=== PATIENT | female | born 1965 | race Caucasian/White ===

== ENCOUNTER 2022-08-16 13:24 | Outpatient (CLI) | payer MEDICAID, SELFPAY ==
--- NOTE | 2022-08-16 13:15 | RT.EKG_ITS ---
APPROVED REPORT Exam: Resting ECG Reason for Exam: chest discomfort Patient Location: O HR:100 bpm ECG Measurements Heart Rate 100 AXIS AR 157 P 59 QRSd 84 QRS 25 QT 348 T 57 QTc 449 Conclusion Sinus tachycardia...rate> 99
== END 2022-08-16 13:25 | disposition home or self-care (01) ==
LOC: DI.CM 13:25
PROVIDERS: Visit Provider Nurse Practitioner Family
DX: R07.89 Other chest pain (principal); R94.31 Abnormal electrocardiogram [ECG] [EKG]; R00.0 Tachycardia, unspecified
CPT/HCPCS: 93010

== ENCOUNTER 2022-08-16 14:06 | Emergency (ER) | payer MEDICAID, SELFPAY ==
[2022-08-16 14:10] VITALS: BP 183/106; PULSE 106; RESP 20; TEMP 37.1; O2SAT 95
--- NOTE | 2022-08-16 14:15 | DI.CT_ITS ---
Exam(s) CT HEAD WO EXAM: CT HEAD WO CLINICAL HISTORY: headache. TECHNIQUE: Imaging Protocol: Axial computed tomography images with coronal and sagittal reformatted images were created and reviewed COMPARISON: No exams were available for comparison FINDINGS: The ventricular system is normal in appearance. No evidence of acute intracranial hemorrhage, mass effect, or midline shift. The orbital structures are unremarkable. The temporal bone structures appear intact. Calvarium: Normal. Visualized Paranasal sinuses/Mastoids: Clear. IMPRESSION: Normal cranial CT. RADIATION DOSE DELIVERED: 690.35mGy.cm Total DLP 690.35mGy.cm Total DLP !Error CTDIvol DATA REPOSITORY: All CT scans at this facility are submitted to the National Radiology Data Registry (NRDR) Dose Index Registry (DIR) with the [employer] ([employer]). RADIATION OPTIMIZATION: All CT scans at this facility use at least one of these dose optimization te chniques: automated exposure control; mA and/or kV adjustment per patient size (includes targeted exa ms where dose is matched to clinical indication); or iterative reconstruction.
--- NOTE | 2022-08-16 14:15 | RT.EKG_ITS ---
APPROVED REPORT Exam: Resting ECG Reason for Exam: left arm numbness Patient Location: E HR:98 bpm ECG Measurements Heart Rate 98 AXIS VA 152 P 38 QRSd 81 QRS -1 QT 343 T 41 QTc 440 Conclusion Sinus rhythm...normal P axis, V-rate 60- 99 Probable left atrial enlargement...P >50mS, <-0.10mV V1
--- NOTE | 2022-08-16 14:22 | ED.GENADUL_ITS ---
Discharge Plan Disposition Patient Disposition: HOME Condition: Stable Discharge Details Clinical Impression: Headache, Arm numbness left, Hypertension, COVID Primary Care Provider: Unknown,Unknown ED Provider: Alex Spring Home Meds and New Rx's Prescriptions: Continued lisinopril 20 mg tablet 20 mg PO DAILY 30 Days Qty: 30 0RF amlodipine 10 mg tablet 10 mg PO DAILY Qty: 30 0RF Discharge Instructions Instructions: COVID-19 (Coronavirus Disease 2019) (ED) Additional Instructions: your ct scan, mri and blood work did not show concerning findings you tested positive for covid you have been placed on a follow up list to get established with a primary care provider if you feel more ill, have severe worsening pain or persistent vomiting return to the emergency department Medical Decision Making 57 yo female with hx of htn who moved here from [place] over the summer and hasn't taken her lisinopril or amlodipine in over a month as she ran out, comes in with 2 days of head pain, numbness and tingling in her left arm and general weakness. She states the pain started slowly worsening and is now severe. She has had some intermittent episodes of blurred vision as well. No chest pain or pressure, no dyspnea. She arrives stable speaking clearly, cn ii-xii intact,caox4 clear speech, no focal deficits, nih of 0 on my exam. She has no abdomen tenderness, clear lung sounds, normal peripheral pulses. She does state she has a history of migraines but hasn't had one in over a year. Given her pain and subjective numbness for [address] head to evaluate for possible hemorrhage and obtain ekg, cbc, cmp and troponin. She has no deficits and symptoms started 2 days ago so not a lytic or interventional candidate but suspicion for cva is low. 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 Troponin negative and given two days of symptoms do not feel delta troponin indicated bp now 150/90, pain significantly improved, mri unremarkable. She is positive for covid and has had some nasal congestion and dry cough on repeat questioning. She states she is vaccinated for covid, isn't requiring oxygen at this time and doesn't require hospitalization for covid. I suspect migraine in setting of covid. 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 She is stable for d/c, will provide 30 days of her lisinopril and amlodipine and placed on f/u list to see pcp, return precautions given Differential Diagnosis Differential Diagnosis: migraine, tension headache, hemorrhage Imaging Data Radiologic Study: Attestation: I personally reviewed and interpreted this imaging study as follows: Imaging: CT Scan Radiologist's impression: no acute findings Radiologic Study #2: Attestation: I personally reviewed and interpreted this imaging study as follows: Imaging: MRI Radiologist's impression: no acute findings ECG Data Attestation: I personally reviewed and interpreted this ECG (s) as follows: Prior ECG tracings: not available for review Interpretation: sinus rhythm rate of [address] t wave ischemic findings HPI General Mode of arrival: ambulatory . Date/Time Provider Initiated Documentation: 08/16/22 14:08 . Limitations to Documentation: no limitations . Information obtained by: patient . History of Present Illness 57 year old F presents to the emergency department with the chief complaint of headache, described as moderate, Quality is described as aching, Patient started experiencing this day(s) (2) and it has been constant. No relieving factors improve symptom(s), No exacerbating factors reported . Patient notes weakness. Patient did receive the following treatments prior to arrival, none Related Data Home Medications Medication Instructions Recorded Confirmed amlodipine 10 mg tablet 10 mg PO DAILY #30 tabs 08/16/22 lisinopril 20 mg tablet 20 mg PO DAILY 30 days #30 tabs 08/16/22 Previous Rx's Medication Instructions Recorded amlodipine 10 mg tablet 10 mg PO DAILY #30 tabs 08/16/22 lisinopril 20 mg tablet 20 mg PO DAILY 30 days #30 tabs 08/16/22 Allergies Allergy/AdvReac Type Severity Reaction Status Date / Time No Known Allergies Allergy Verified 08/16/22 13:18 General Stated Complaint: CVA/TIA ZAMZAM: 2 Review of Systems All systems reviewed & are unremarkable except as noted in HPI and below Constitutional Constitutional: Denies chills and Denies fever(s) Cardiovascular Cardiovascular: Denies chest pain and Denies dyspnea Respiratory Respiratory: Denies cough and Denies dyspnea Gastrointestinal Gastrointestinal: Denies abdominal pain Genitourinary Genitourinary: Denies dysuria Integumentary/Breasts Skin/Breast: Denies rash PFSH All Active Problems (Updated 08/16/22 @ 16:25 by Alex Spring MD) Headache (Acute) Arm numbness left (Acute) Hypertension (Chronic) COVID (Acute) Social History Smoking risk assessment performed?: No Exam Const Orientation: alert HENMT Head: normal to inspection Ears: external ears normal General nose exam: external nose normal Mouth: moist mucous membranes Eyes General: appearance normal, both eyes and all related structures Neck Neck: normal visual inspection Resp Effort & Inspection: normal respiratory effort and able to speak in complete sentences Cardio Rate: regular rate Skin General skin exam: no rashes or lesions noted Neuro General: patient alert and patient oriented x3 Extrem General: normal to inspection Psych Mental Status: mental status grossly normal Course Vital Signs Vital signs: Vital Signs Temperature 37.1 C 08/16/22 14:10 Pulse 106 H 08/16/22 14:10 Respiratory Rate 20 08/16/22 14:10 Blood Pressure 183/106 H 08/16/22 14:10 Pulse Oximetry 95 08/16/22 14:10 Temperature 37.1 C 08/16/22 14:10 Temperature Source Temporal Artery Scan 08/16/22 14:10 Pulse 106 H 08/16/22 14:10 Respiratory Rate 20 08/16/22 14:10 Blood Pressure 183/106 H 08/16/22 14:10 Blood Pressure Position Sitting 08/16/22 14:10 Pulse Oximetry 95 08/16/22 14:10 Oxygen Delivery Method Room Air 08/16/22 14:10 Oxygen Flow Rate 0 08/16/22 14:10
[2022-08-16 14:57] LABS: Abs Immature Grans 0.02 10^3/uL (0.0-0.06); Absolute Basophil Count 0.04 10^3/uL (0.0-0.2); Absolute Eosinophil Count 0.08 10^3/uL (0.0-0.7); Absolute Lymphocyte Count 0.68 10^3/uL (1.2-3.4); Absolute Monocyte Count 0.53 10^3/uL (0.1-0.8); Absolute Neutrophil Count 5.01 10^3/uL (1.2-6.7); Basophils % 0.6; Eosinophils % 1.3; HCT 45.2 % (36.0-46.0); HGB 15.3 g/dL (11.2-15.7); Immature Grans % 0.3; Lymphocytes % 10.7; MCH 30.7 pg (27.0-33.0); MCHC 33.8 % (32.0-36.0); MCV 91 fL (80-95); MPV 11.3 fL (8.0-11.0); Monocytes % 8.3; Neutrophils % 78.8; Platelet Count 197 10^3/uL (130-400); RBC 4.99 10^6/uL (3.93-5.22); WBC 6.36 10^3/uL (4.4-10.8)
[2022-08-16 15:00] LABS: Source Nasal/Nares
[2022-08-16] MEDS: diphenhydrAMINE 50 MG/ML VIAL 25 MG IVP (15:02)
[2022-08-16] MEDS: Prochlorperazine 10 MG/2 ML VIAL IVP (15:03)
[2022-08-16] MEDS: Normal Saline Flush 10 ML SYR IVP (15:04)
[2022-08-16 15:13] LABS: ALT 29 U/L (14-59); AST 18 U/L (15-37); Albumin 3.9 g/dL (3.4-5.0); Alkaline Phosphatase 96 U/L (46-116); Anion Gap 11.6 mmol/L (3-11); BUN 12 mg/dL (7-18); Bilirubin, Total 0.5 mg/dL (0.2-1.0); CO2 24.4 mmol/L (21.0-32.0); CREATININE 0.9 mg/dL (0.55-1.02); Calcium 8.8 mg/dL (8.5-10.1); Chloride 102 mmol/L (98-107); Estimated GFR 75.03 (mL/min/1.73m2); Glucose 112 mg/dL (74-106); Magnesium 1.8 mg/dL (1.8-2.4); Potassium 3.7 mmol/L (3.5-5.1); Sodium 138 mmol/L (136-145); Total Protein 7.7 g/dL (6.4-8.2); Troponin I < 50 ng/L (<or=60)
--- NOTE | 2022-08-16 15:15 | DI.MRI_ITS ---
Exam(s) MR BRAIN WO EXAM: MR BRAIN WO CLINICAL HISTORY: ?cva TECHNIQUE: Multiplanar multisequence MRI of the brain was performed. COMPARISON: No exams were available for comparison FINDINGS: The patient has a large metal year ring on the left which cannot be removed and this causes significa nt artifact influence sing primarily visibility of the left temporal lobe.The ventricular system is n ormal in appearance. There are scattered areas of periventricular and subcortical white matter signal abnormality consiste nt with microvascular ischemic changes and sparing the corpus callosum. No other significant signal abnormality identified in the brain.. The orbital and temporal bone structures appear intact as does the pituitary. Diffusion weighted imaging shows no evidence of infarction. Susceptibility weighted imaging shows no evidence of intracranial hemorrhage. There is normal flow void in the [place] vasculature. IMPRESSION: Normal brain MRI for age. The scan is somewhat limited by artifact from a left metallic earring whic h could not be removed. DATA REPOSITORY:
[2022-08-16] MEDS: HYDROmorphone 2 MG/ML SYR 1 MG IVP (15:26)
[2022-08-16 15:28] LABS: COVID-19 PCR POSITIVE (Negative)
[2022-08-16] MEDS: amLODIPine 10 MG TAB PO (16:03)
--- NOTE | 2022-08-16 16:23 | NUR.NOTE ---
Nursing Note: Referral given to Care Management for needs PCP, hypertension, establish care; within 30 days.
[2022-08-16 16:36] VITALS: RESP 20
== END 2022-08-16 16:46 | disposition home or self-care (01) ==
PROVIDERS: Emergency Provider Emergency Medicine
DX: U07.1 COVID-19 (principal); I10 Essential (primary) hypertension; R51.9 Headache, unspecified; R20.0 Anesthesia of skin
CPT/HCPCS: 36415; 80053; 87635; 93005; 96374; 96375; 99284; 70450; 70551; 83735; 84484; 85025; 93010; J0780; J1170; J1200

== ENCOUNTER 2022-09-03 07:44 | Emergency (ER) | payer MEDICAID, SELFPAY ==
[2022-09-03] VITALS (13 sets, daily range): BP systolic 126–161; BP diastolic 68–98; PULSE 72–91; RESP 11–16; TEMP 36.6; O2SAT 95–98
--- NOTE | 2022-09-03 07:45 | DI.RAD_ITS ---
Exam(s) XR CHEST 2V PA LATERAL EXAM: XR CHEST 2V PA LATERAL CLINICAL HISTORY: CP TECHNIQUE: 2D digital imaging was performed. COMPARISON: No exams were available for comparison FINDINGS: HEART: Normal size. Aorta: PULMONARY VASCULATURE: Normal. LUNGS: Clear. PLEURAL SPACE: No pleural effusion or pneumothorax. BONE:Unremarkable for age. IMPRESSION: No acute abnormality. DATA REPOSITORY: RADIATION DOSE DELIVERED:
--- NOTE | 2022-09-03 07:45 | RT.EKG_ITS ---
APPROVED REPORT Exam: Resting ECG Reason for Exam: CHEST PAIN Patient Location: E HR:88 bpm ECG Measurements Heart Rate 88 AXIS AL 173 P 45 QRSd 79 QRS 15 QT 392 T 30 QTc 475 Conclusion Sinus rhythm...normal P axis, V-rate 60- 99. Sinus. Normal axis. No STEMI. I have reviewed and interpreted ECG and agree with software generated interpretation.
--- NOTE | 2022-09-03 08:15 | ED.GENADUL_ITS ---
Discharge Plan Disposition Patient Disposition: HOME Condition: Good Discharge Details Clinical Impression: Chest pain Primary Care Provider: Latasha,Local ED Provider: Nimo Leone Home Meds and New Rx's Prescriptions: New amlodipine 10 mg tablet 10 mg PO DAILY 30 Days Qty: 30 0RF lisinopril 20 mg tablet 20 mg PO DAILY 30 Days Qty: 30 0RF Continued lisinopril 20 mg tablet 20 mg PO DAILY 30 Days Qty: 30 0RF amlodipine 10 mg tablet 10 mg PO DAILY Qty: 30 0RF Discharge Instructions Instructions: Chest Pain (ED), Stress (ED) Additional Instructions: Your labs and imaging are reassuring here today. No evidence of acute heart attack or blood clot in your lungs. As discussed, I am concerned that some of this may be associated with stress. Please try to take note of the how you are feeling and what is occurring when you have these symptoms. Care management will contact you regarding follow up with primary care. I have refilled your blood pressure medications. If you develop increased pain, fevers/chills, difficulty breathing or other new/worsening symptoms please seek care urgently once again. Discharge Data Discharge Date/Time-TO BE ENTERED AT DEPARTURE: 09/03/22 12:32 Medical Decision Making Patient is a pleasant 57-year-old female presenting today with chief complaint of chest tightness. Patient was here on 08/16/2022 at that time, she was endorsing some left arm tingling and was diagnosed with COVID-19. She states that since being evaluated here which did include head imaging including a CT and MRI of the patient was endorsing headache at that time, her intermittent left arm tingling has persisted. This sounds to be intermittent and is now in line with when she experiences her chest tightness. States that the chest tight ness started most of the left side of her chest it will then spread out across the chest. She reports that this is worse at night when she is sitting and resting. Patient reports that she works at [employer] where she is on her feet all day and does walk 30 minutes to and from work. While her walking has been slightly slower since her diagnosis COVID, she did not experience shortness of breath or chest tightness during that time. She is no longer experiencing cough, congestion. Denies fevers or chills, no sputum production. No radiation of the pain. She denies any personal or familial history of NE. She does have history of hypertension and states that she has been taking her antihypertensives. On exam, patient appears nontoxic. She is hypertensive but does have baseline history of hypertension her current readings in the 160s or 150s that sounds to be her baseline at home. She first appears profoundly anxious and is tearing. She states that she is very anxious around her symptoms. Does not have a diagnosis of anxiety or depression. Her lungs are clear, normal cardiac auscultation. She has 2+ distal pulses in all extremities. Abdomen is benign. Do not note any objective neurologic deficits. As the patient currently endorsing some chest discomfort, will give her aspirin. However, I do have Low suspicion for ACS as there is no correlation with exertion and patient does walk for about an hour every day. She appears more anxious than anything else at this time. As she was recently diagnosed with COVID, are closed elevated chest discomfort, also considered potentially a pulmonary embolism. Will obtain chest x-ray and baseline blood work. I did discuss the fact that she appears anxious and she does agree with my assessment is interested in anxiolytic. We will give Ativan, patient did not drive herself here. HEART: Normal size.? Aorta: PULMONARY VASCULATURE: Normal. LUNGS: Clear. ? PLEURAL SPACE: No pleural effusion or pneumothorax. BONE:Unremarkable for age.? IMPRESSION: No acute abnormality CBC pending. CMP without signifcant abnormality. Troponin WNL. As the patient was having pain when she came in, plan for repeat troponin. D-dimer is within age-adjusted normal. Patient's pain has completely subsided after the IV Ativan. Repeat troponin WNL. Discussed with patient. She remains asymptomatic. She and I discussed the possib ility that some of this could be anxiety driven and stress. She began to tear and is acknowledge that this is likely with recent move. Spoke with patients daughter, with patient permission, who also has noted her to be more anxious and upset. while her history and triggers of these events do sound to be this, I want to ensure she has close f/u as she has underlying health conditions and active smoker. Contact our care mangement team who will try ot speed up eval by PCP. Will refill her HTN medications in the interum. We discussed supportive care. Encoruaged she try to track her symptoms more, try to find stressful triggers, if any. Discussed return precautions. All of her questions and concerns were addressed, sh eis in agreement with this plan. HPI General Date/Time Provider Initiated Documentation: 09/03/22 07:55 . Limitations to Documentation: no limitations . Information obtained by: patient, RN notes reviewed and old records reviewed . History of Present Illness 57 year old F presents to the emergency department with the chief complaint of chest tightness, left arm tingling, anxious, described as moderate, with intensity rated at 7. Quality is described as other (tightness), and is localized to the chest. Patient reports no radiation. Patient started experiencing this day(s) and it has been intermittent. other things that improve symptom(s), (none during the day, when at work or walking to work) Other factors that worsen symptoms (at night when sitting, currently while sitting) . Patient notes chest pain and shortness of breath (when she has the chest tightness); denies cough, diaphoresis, fever/chills, headaches, malaise, nausea/vomiting, rash and weakness. Patient did receive the following treatments prior to arrival, none Related Data Home Medications Medication Instructions Recorded Confirmed amlodipine 10 mg tablet 10 mg PO DAILY #30 tabs 08/16/22 09/03/22 lisinopril 20 mg tablet 20 mg PO DAILY 30 days #30 tabs 08/16/22 09/03/22 amlodipine 10 mg tablet 10 mg PO DAILY 1 month #30 tabs 09/03/22 lisinopril 20 mg tablet 20 mg PO DAILY 1 month #30 tabs 09/03/22 Previous Rx's Medication Instructions Recorded amlodipine 10 mg tablet 10 mg PO DAILY #30 tabs 08/16/22 lisinopril 20 mg tablet 20 mg PO DAILY 30 days #30 tabs 08/16/22 amlodipine 10 mg tablet 10 mg PO DAILY 1 month #30 tabs 09/03/22 lisinopril 20 mg tablet 20 mg PO DAILY 1 month #30 tabs 09/03/22 Allergies Allergy/AdvReac Type Severity Reaction Status Date / Time Penicillins Allergy Anaphylaxis Unverified 09/03/22 07:58 General Stated Complaint: Chest Pain ZAMZAM: 3 Review of Systems Constitutional Constitutional: Reports as per HPI, Denies chills, Denies fever(s) and Denies headache(s) ENT Ears, Nose, Mouth, and Throat: Denies headache(s) Cardiovascular Cardiovascular: Reports as per HPI and Denies dyspnea on exertion Respiratory Respiratory: Reports as per HPI, Denies chest congestion, Denies cough, Denies pain on inspiration, Denies pain with cough and Denies dyspnea on exertion Gastrointestinal Gastrointestinal: Reports as per HPI, Denies abdominal pain, Denies diarrhea, De nies nausea and Denies vomiting Musculoskeletal Musculoskeletal: Reports as per HPI and Denies back pain Integumentary/Breasts Skin/Breast: Reports as per HPI and Denies rash Neurologic Neurologic: Reports as per HPI and Denies headache(s) PFSH All Active Problems (Updated 09/03/22 @ 12:12 by DINA Sharma) Headache (Acute) Arm numbness left (Acute) Hypertension (Chronic) COVID (Acute) Chest pain (Acute) Social History Smoking/Tobacco Use Status: Current every day Tobacco Type: cigarettes Smoking risk assessment performed?: Yes Alcohol Intake: never Drug use: Never Substance use type: does not use Do you feel safe at home: Yes Do you feel safe in your relationship?: Yes Exam Const General: cooperative, healthy appearing, comfortable, no acute distress, well developed and anxious (tearing, appears very anxious) Nutritional Appearance: well nourished and overweight Orientation: alert, awake and oriented x3 HENMT Head: normal to inspection Ears: hearing grossly normal bilaterally Mouth: moist mucous membranes Chest Chest: normal inspection of the chest, normal palpation of entire chest wall and no crepitus Resp Effort & Inspection: normal respiratory effort, able to speak in complete sentences and no respiratory distress Auscultation: clear to auscultation bilaterally, no rales, no rhonchi and no wheezes Cardio Rate: regular rate Rhythm: regular rhythm Heart Sounds: S1 normal and S2 normal GI Inspection: normal to inspection, no edema and non-distended Palpation: soft, no hepatosplenomegaly, not firm, no guarding, not rigid and nontender Auscultation: normal bowel sounds Back/Spine/Pelvis Back: no CVA tenderness Thoracic/Lumbar Spine: thoracic and lumbar spine normal to inspection Skin General skin exam: no rashes or lesions noted Trauma: no lacerations or abrasions Neuro General: patient alert, patient awake and patient oriented x3 Cognition: normal cognition Speech: speech normal Gait: normal gait Extrem General: normal to inspection, capillary refill normal, no pedal edema, no calf tenderness and normal gait Psych Appearance: grossly normal and well kempt Mental Status: mental status grossly normal Speech and Movement: speech and movement normal Course Vital Signs Vital signs: Vital Signs Temperature 36.6 C 09/03/22 07:54 Pulse 91 H 09/03/22 07:54 Respiratory Rate 16 09/03/22 07:54 Blood Pressure 161/98 H 09/03/22 07:54 Pulse Oximetry 97 09/03/22 07:54 Temperature 36.6 C 09/03/22 07:54 Temperature Source Temporal Artery Scan 09/03/22 07:54 Pulse 91 H 09/03/22 07:54 Respiratory Rate 16 09/03/22 07:54 Respiratory Effort Non-Labored 09/03/22 07:59 Blood Pressure 161/98 H 09/03/22 07:54 Blood Pressure Position Sitting 09/03/22 07:54 Pulse Oximetry 97 09/03/22 07:54 Oxygen Delivery Method Room Air 09/03/22 07:54 Oxygen Flow Rate 0 09/03/22 07:54
[2022-09-03 08:16] LABS: Abs Immature Grans 0.02 10^3/uL (0.0-0.06); Absolute Basophil Count 0.04 10^3/uL (0.0-0.2); Absolute Eosinophil Count 0.23 10^3/uL (0.0-0.7); Absolute Lymphocyte Count 2.98 10^3/uL (1.2-3.4); Absolute Monocyte Count 0.37 10^3/uL (0.1-0.8); Absolute Neutrophil Count 4.59 10^3/uL (1.2-6.7); Basophils % 0.5; Eosinophils % 2.8; HCT 43.6 % (36.0-46.0); HGB 14.5 g/dL (11.2-15.7); Immature Grans % 0.2; Lymphocytes % 36.2; MCH 30.6 pg (27.0-33.0); MCHC 33.3 % (32.0-36.0); MCV 92 fL (80-95); MPV 11.1 fL (8.0-11.0); Monocytes % 4.5; Neutrophils % 55.8; Platelet Count 224 10^3/uL (130-400); RBC 4.74 10^6/uL (3.93-5.22); RDW-SD 41.1 fL; WBC 8.23 10^3/uL (4.4-10.8)
[2022-09-03] MEDS: Aspirin 81 MG CHEW 324 MG CH (08:26)
[2022-09-03] MEDS: LORazepam 2 MG/ML VIAL 0.5 MG IVP (08:29)
[2022-09-03 08:35] LABS: ALT 26 U/L (14-59); AST 15 U/L (15-37); Albumin 3.8 g/dL (3.4-5.0); Alkaline Phosphatase 111 U/L (46-116); Anion Gap 8.7 mmol/L (3-11); BUN 19 mg/dL (7-18); Bilirubin, Total 0.2 mg/dL (0.2-1.0); CO2 26.3 mmol/L (21.0-32.0); Calcium 8.6 mg/dL (8.5-10.1); Chloride 107 mmol/L (98-107); Estimated GFR 66.12 (mL/min/1.73m2); Glucose 144 mg/dL (74-106); Magnesium 2.1 mg/dL (1.8-2.4); Potassium 3.8 mmol/L (3.5-5.1); Sodium 142 mmol/L (136-145); Total Protein 7.6 g/dL (6.4-8.2); Troponin I < 50 ng/L (<or=60)
[2022-09-03 09:24] LABS: D-Dimer 510 ng/mlFEU (<500)
[2022-09-03 11:42] LABS: Troponin I < 50 ng/L (<or=60)
== END 2022-09-03 12:32 | disposition home or self-care (01) ==
PROVIDERS: Emergency Provider Physician Assistant
DX: R07.9 Chest pain, unspecified (principal); R07.89 Other chest pain; I10 Essential (primary) hypertension; F17.210 Nicotine dependence, cigarettes, uncomplicated
CPT/HCPCS: 80053; 93005; 96374; 99284; 71046; 83735; 84484; 85025; 85379; 93010; 99283; J2060

== ENCOUNTER 2022-11-13 07:51 | Emergency (ER) | payer MEDICAID, SELFPAY ==
[2022-11-13 08:01] VITALS: BP 160/97; PULSE 91; RESP 18; TEMP 36.6; O2SAT 99
--- NOTE | 2022-11-13 08:37 | ED.GENADUL_ITS ---
Discharge Plan Disposition Patient Disposition: Home Condition: Stable Discharge Details Clinical Impression: Acute low back pain with sciatica Primary Care Provider: None,None ED Provider: Kavin Titus Home Meds and New Rx's Prescriptions: New diclofenac potassium 50 mg tablet 50 mg PO TID PRN (Reason: pain) Qty: 15 0RF cyclobenzaprine 10 mg tablet 10 mg PO TID PRN (Reason: muscle spasm) Qty: 20 0RF Continued lisinopril 20 mg tablet 20 mg PO DAILY 30 Days Qty: 30 0RF amlodipine 10 mg tablet 10 mg PO DAILY Qty: 30 0RF Discharge Instructions Instructions: Sciatica (ED) Additional Instructions: Please avoid bending lifting and twisting motions as this may make your back pain worse. As you are feeling better you may slowly increase activity as tolerated otherwise follow-up with primary care provider for establishment of PC P and reassessment of your back pain Stand Alone Forms: Work Release Referrals: Primary Care Provider [Outside] - 1 week Discharge Data Discharge Date/Time-TO BE ENTERED AT DEPARTURE: 11/13/22 09:05 Medical Decision Making Patient presenting to the emergency department with chief complaint of back pain. Patient states that this started 1 week ago and has noted some radiation of pain into the left thigh and knee. Patient denies any injury or trauma, incident of lifting or twisting. She states she has only been resting and has not taken any medications for her discomfort. Physical exam is positive for lower lumbar tenderness specifically on the left side and patient has more tenderness to the paraspinal tissue then to the lumbar vertebrae. Exam is otherwise unremarkable, DTRs intact, pulses intact, movement intact, sensation intact. LOW risk for ABDOMINAL AORTIC ANEURYSM, CAUDA EQUINA SYNDROME, EPIDURAL MASS LESION, SPINAL STENOSIS, OR HERNIATED DISK CAUSING SEVERE STENOSIS, thus I consider the discharge disposition reasonable. We have discussed the diagnosis and risks, and we agree with discharging home to follow-up with their primary doctor. We also discussed returning to the Emergency Department immediately if new or worsening symptoms occur. We have discussed the symptoms which are most concerning (e.g., saddle anesthesia, urinary or bowel incontinence or retention, changing or worsening pain) that necessitate immediate return. Will give patient prescription for NSAIDs, will give patient Depo-Medrol IM injection and lidocaine patch here in the emergency department. We will also prescribe some muscle relaxants for patient to use at home. After discussion of diagnosis and plan of care patient has no further needs, questions, or concerns and states clear understanding to return to the emergency department for any worsening symptoms. This documentation was generated using [employer] system, please disregard any oddities of phrase or misspellings. HPI General Mode of arrival: ambulatory . Date/Time Provider Initiated Documentation: 11/13/22 08:05 . Limitations to Documentation: no limitations . Information obtained by: patient and RN notes reviewed . History of Present Illness 57 year old F presents to the emergency department with the chief complaint of back pain , described as moderate, with intensity rated at 8. Quality is described as aching and sharp, and is localized to the back and left. Patient extremity. Patient started experiencing this week(s) (1) and it has been constant. Immobilization improves symptom(s), Movement worsens symptoms . Patient notes no other symptoms.. Patient did receive the foll owing treatments prior to arrival, none Related Data Home Medications Medication Instructions Recorded Confirmed amlodipine 10 mg tablet 10 mg PO DAILY #30 tabs 08/16/22 11/13/22 lisinopril 20 mg tablet 20 mg PO DAILY 30 days #30 tabs 08/16/22 11/13/22 cyclobenzaprine 10 mg tablet 10 mg PO TID PRN muscle spasm #20 11/13/22 tabs diclofenac potassium 50 mg tablet 50 mg PO TID PRN pain #15 tabs 11/13/22 Previous Rx's Medication Instructions Recorded amlodipine 10 mg tablet 10 mg PO DAILY #30 tabs 08/16/22 lisinopril 20 mg tablet 20 mg PO DAILY 30 days #30 tabs 08/16/22 cyclobenzaprine 10 mg tablet 10 mg PO TID PRN muscle spasm #20 11/13/22 tabs diclofenac potassium 50 mg tablet 50 mg PO TID PRN pain #15 tabs 11/13/22 Allergies Allergy/AdvReac Type Severity Reaction Status Date / Time Penicillins Allergy Anaphylaxis Unverified 09/03/22 07:58 General Stated Complaint: Nk/Back Pain ZAMZAM: 3 Review of Systems Constitutional Constitutional: Denies chills and Denies fever(s) Cardiovascular Cardiovascular: Denies chest pain and Denies dyspnea on exertion Respiratory Respiratory: Denies cough and Denies dyspnea on exertion Gastrointestinal Gastrointestinal: Denies abdominal pain, Denies change in bowel habits, Denies diarrhea, Denies nausea and Denies vomiting Genitourinary Genitourinary: Denies urinary incontinence Musculoskeletal Musculoskeletal: Reports as per HPI, Reports back pain and Reports numbness Neurologic Neurologic: Reports numbness PFSH All Active Problems (Updated 11/13/22 @ 08:45 by Kavin Titus NP) Acute low back pain with sciatica (Acute) Hypertension (Chronic) COVID (Acute) Social History Smoking/Tobacco Use Status: Current every day Tobacco Type: cigarettes Smoking risk assessment performed?: Yes Alcohol Intake: never Drug use: Never Substance use type: does not use Do you feel safe at home: Yes Do you feel safe in your relationship?: Yes Exam Const General: cooperative and no acute distress Orientation: alert, awake and oriented x3 Neck Neck: normal visual inspection, full ROM and no meningeal signs Resp Effort & Inspection: normal respiratory effort Auscultation: clear to auscultation bilaterally Cardio Rate: regular rate Rhythm: regular rhythm Heart Sounds: S1 normal and S2 normal Back/Spine/Pelvis Thoracic/Lumbar Spine: thoracic and lumbar spine normal to inspection, pain with thoraco-lumbar ROM, paraspinal tenderness and lumbar spinal tenderness Pelvis: no pain with anterior-posterior compression and no pain with lateral compression Neuro General: patient alert, patient awake and patient oriented x3 Gait: antalgic Motor: muscle tone normal throughout and strength 5/5 throughout Sensory Exam: no sensory deficits noted DTR's: Rt Patellar: 2+ and Lt Patellar: 2+ Course Vital Signs Vital signs: Vital Signs Temperature 36.6 C 11/13/22 08:01 Pulse 91 H 11/13/22 08:01 Respiratory Rate 18 11/13/22 08:01 Blood Pressure 160/97 H 11/13/22 08:01 Pulse Oximetry 99 11/13/22 08:01 Temperature 36.6 C 11/13/22 08:01 Temperature Source Temporal Artery Scan 11/13/22 08:01 Pulse 91 H 11/13/22 08:01 Respiratory Rate 18 11/13/22 08:01 Respiratory Effort Non-Labored 11/13/22 08:05 Blood Pressure 160/97 H 11/13/22 08:01 Blood Pressure Position Sitting 11/13/22 08:01 Pulse Oximetry 99 11/13/22 08:01 Oxygen Delivery Method Room Air 11/13/22 08:01 Oxygen Flow Rate 0 11/13/22 08:01
--- NOTE | 2022-11-13 08:42 | NUR.NOTE ---
Nursing Note: Referral given to Care Management for needs PCP, sciatica, establish care in 1 to 2 weeks
[2022-11-13] MEDS: Lidocaine 5% Patch 1 PATCH TP (08:43)
[2022-11-13] MEDS: methylPREDNISolone ACETATE 40 MG/ML VIAL IM (08:47)
[2022-11-13 08:52] VITALS: BP 160/97; PULSE 80; RESP 18; TEMP 36.6; O2SAT 99
== END 2022-11-13 09:05 | disposition home or self-care (01) ==
PROVIDERS: Emergency Provider Nurse Practitioner Family
DX: M54.42 Lumbago with sciatica, left side (principal)
CPT/HCPCS: 96372; 99284; J1030

== ENCOUNTER 2023-02-08 16:57 | Emergency (ER) | payer MEDICAID, SELFPAY ==
[2023-02-08 16:59] VITALS: BP 169/100; PULSE 90; RESP 20; TEMP 36.7; O2SAT 98
--- NOTE | 2023-02-08 17:00 | RT.EKG_ITS ---
APPROVED REPORT Exam: Resting ECG Reason for Exam: chest tightness Patient Location: E HR:87 bpm ECG Measurements Heart Rate 87 AXIS FL 160 P 46 QRSd 80 QRS 20 QT 372 T 40 QTc 448 Conclusion Sinus rhythm...normal P axis, V-rate 60- 99 Probable left atrial enlargement...P >50mS, <-0.10mV V1 Anteroseptal infarct, old...Q >40mS, V1-V2 There are no significant changes compared to prior EKG performed on 09/03/2022 at 08:02.
--- NOTE | 2023-02-08 17:20 | W.ED.GENAD ---
Discharge Plan Disposition Patient Disposition: Home Condition: Good Discharge Details Clinical Impression: Chest pain, Stress, Anxiety, MCL sprain of left knee Primary Care Provider: Violeta Goodwin ED Provider: Nimo Leone Home Meds and New Rx's Prescriptions: Continued diclofenac potassium 50 mg tablet 50 mg PO TID PRN (Reason: pain) Qty: 15 0RF Patient Comments: does not use anymore 02/08/[address]23 CT lisinopril 20 mg tablet 20 mg PO DAILY 30 Days Qty: 30 0RF amlodipine 10 mg tablet 10 mg PO DAILY Qty: 30 0RF cyclobenzaprine 10 mg tablet 10 mg PO TID PRN (Reason: muscle spasm) Qty: 20 0RF Patient Comments: rx finished 02/08/2023 CT Discharge Instructions Instructions: Chest Pain (ED), Knee Sprain (ED), Anxiety (ED) Additional Instructions: Your imaging and labs are reassuring here today. I am worried that your knee pain is associated with strain of your MCL which is the ligament on the inside of your knee. Please encourage rest, ice, elevation. Tylenol and ibuprofen as needed for discomfort. Please continue with brace to help support the knee until reevaluated by primary care. Regarding her chest pain, I do want to have this followed up with her primary care as well. Further testing may be warranted. However, I am concerned that some of this may be associated with your stress and anxiety. Please continue to seek out the change in your housing. Please stay in close contact as discussed with mental health. Another email or call them at any time to chat further at [phone]. Please follow-up the safety plan as outlined by mental health. I will ask our care management team to ensure expedited follow-up with your new primary care. Please also call Saturday to schedule follow-up appointment. If you develop increased pain, shortness of breath, difficulty breathing, fever/chills, thoughts of harming yourself, or other new/worsening symptom please seek care urgently once again. Referrals: Violeta Goodwin NP [Primary Care Provider] - Discharge Data Discharge Date/Time-TO BE ENTERED AT DEPARTURE: 02/08/23 21:57 Medical Decision Making Patient is a pleasant 57 year old female with PMH of HTN, presenting today with chief complaint of chest discomfort. She reports that this has been consistent since yesterday. Feels like it is worse positionally and associated with an increase in stress. 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 She denies any fevers or chills. No cough. States that when her stress her discomfort increased she does have some shortness of breath. Denies any GI upset. No personal or familial history of NE. She does not have pain radiating into the back. She does have some tingling into her bilateral arms. She has been here for chest discomfort in the past and states that this pain feels the same as it was then. That at that time to, the discomfort was elicited more associated with stress. On exam, patient appears nontoxic. She does appear quite anxious. Her lungs are clear, normal cardiac auscultation. No lower extremity edema or calf pain. She is 2+ distal pulses in all extremities. Primarily concern at this time for anxiety based on patient's history and description. However, I did consider ACS as well. Will obtain EKG, troponins. Patient is not having symptoms associated with pulmonary embolism. Nor does patient have risk factors. History exam is not consistent with aortic dissection, esophageal perforation. Discussed my concern at length with atient about her anxiety and depression. She would like to speak with . She would like anxyoytic, will give IV ativan and ASA. Labs are reassuring. X-ray without signficant abnormlaity. Reevaluated the patient and she is endorsing some medial sided knee pain. Exam and it is concerning for pain over the MCL with both palpation as well as with valgus stress testing. She does not have any notable laxity. No effusion. No posterior pain. Ligamentously intact elsewhere as well. We will place a hinged knee brace. She states that this has been making it difficult for her to perform her ADLs including any squatting or deep bending. X-ray without acute abnormality. Patient reports feeling significantly improved CP with the ativan, feels that she is calmer and BP is downtrending. Pt. evalauted by MH. Patient and MH have set up safety plan, would like to continue with outpatient . She will speak with each day over the weekend, plan to be seen on Saturday. Patient is not an acute risk to herself or others. She was given emergent MH number and knows to call should she hace increasing symptoms. She will return immediately if she develops thoughts of self harm. She was given some coping techniques. Repeat troponin WNL. Encouraged that she f/u with PCP next week. Will want to discuss possible stress test. Strict return precautions given. She has other social supports around her concern for housing. Her symptoms most likely linked to her increased stress and anxiety. All of her questions and concerns were addressed, she is in agreement with this plan. She ahs children close who can assist and support, daughter will pick her up. HPI General Date/Time Provider Initiated Documentation: 02/08/23 17:20. Limitations to Documentation: no limitations. Information obtained by: patient, RN notes reviewed and old records reviewed. History of Present Illness 57 year old F presents to the emergency department with the chief complaint of chest pain, described as severe and similar to prior episodes (has had CP during times of stress in the past), with intensity rated at 9. Quality is described as aching, and is localized to the chest. Patient reports no radiation (no pain in the arms but had some tingling in the arms). Patient started experiencing this day(s) and it has been constant (can wax/wane but is typically always present). No relieving factors improve symptom(s), No exacerbating factors reported (increased stress recently, some increase with certain movements but nothing reproducible) . Patient notes chest pain; denies cough, diaphoresis, fever/chills, headaches (reports chronic COLE, no change in this), loss of appetite, nausea/vomiting, rash and weakness. Patient did receive the following treatments prior to arrival, none Related Data Home Medications Medication Instructions Recorded Confirmed amlodipine 10 mg tablet 10 mg PO DAILY #30 tabs 08/16/22 02/08/23 lisinopril 20 mg tablet 20 mg PO DAILY 30 days #30 tabs 08/16/22 02/08/23 cyclobenzaprine 10 mg tablet 10 mg PO TID PRN muscle spasm #20 11/13/22 11/19/22 tabs diclofenac potassium 50 mg tablet 50 mg PO TID PRN pain #15 tabs 11/19/22 11/19/22 Previous Rx's Medication Instructions Recorded amlodipine 10 mg tablet 10 mg PO DAILY #30 tabs 08/16/22 lisinopril 20 mg tablet 20 mg PO DAILY 30 days #30 tabs 08/16/22 cyclobenzaprine 10 mg tablet 10 mg PO TID PRN muscle spasm #20 11/13/22 tabs diclofenac potassium 50 mg tablet 50 mg PO TID PRN pain #15 tabs 11/19/22 Allergies Allergy/AdvReac Type Severity Reaction Status Date / Time Penicillins Allergy Anaphylaxis Unverified 02/08/23 17:07 General Stated Complaint: Chest Pain ZAMZAM: 2 Review of Systems Constitutional Constitutional: Reports as per HPI, Denies chills, Denies fever(s) and Denies poor appetite Eyes Eyes: Denies change in vision ENT Ears, Nose, Mouth, and Throat: Denies dizziness Cardiovascular Cardiovascular: Reports as per HPI and Denies dyspnea on exertion Respiratory Respiratory: Reports as per HPI, Denies chest congestion, Denies cough, Denies pain on inspiration, Denies pain with cough and Denies dyspnea on exertion Gastrointestinal Gastrointestinal: Reports as per HPI, Denies abdominal pain, Denies diarrhea, Denies nausea and Denies vomiting Musculoskeletal Musculoskeletal: Reports as per HPI and Denies back pain Integumentary/Breasts Skin/Breast: Reports as per HPI and Denies rash Neurologic Neurologic: Reports as per HPI and Denies dizziness Psychiatric Psychiatric: Reports anxiety, Reports depression, Reports mood swings, Reports panic attacks, Denies homicidal ideation and Denies suicidal ideation PFSH All Active Problems (Updated 02/08/23 @ 21:50 by DINA Sharma) Chest pain (Acute) Stress (Acute) Anxiety (Chronic) MCL sprain of left knee (Acute) Hypertension (Chronic) COVID (Acute) Family History (Updated 12/07/22 @ 14:52 by Wendy Vanessa) Mother Diabetes Hypertension Father No problems noted. Sister No problems noted. Brother Diabetes Hypertension Son No problems noted. Daughter No problems noted. Daughter No problems noted. Maternal Grandfather , 81 Cancer Paternal Grandfather , 60's Cancer Social History (Updated 12/07/22 @ 14:51 by Wendy Vanessa) Smoking/Tobacco Use Status: Current every day Tobacco Type: cigarettes Tobacco: How many years used: 4 Quit status: considering quitting Second Hand Exposure: Yes Smoking risk assessment performed?: Yes Alcohol Intake: current Alcohol Intake frequency: holidays/special occasions only Alcohol type: wine Drug use: Never Substance use type: does not use Caregiver/Support person: No Housing: homeless Do you need help understanding health information?: Never Pets and animals: No Sexually active: No Do you think of yourself as: straight/heterosexual Current gender identity: female What is your relationship status?: How often do you talk on the phone with friends or family?: three or more times per week How often do you get together with friends or relatives?: once per week How often do you attend hinduism or baptist services?: 1-3 times per year Do you belong to any clubs or organized social groups?: no Panel score (0-1 are the most socially isolated patients): 1 What type of physical activity do you participate in: none Erlinda/Scientology: Muslim Special erlinda needs: No Seatbelt use: always Helmet use: No 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 Do you feel safe at home: Yes Do you feel safe in your relationship?: Yes Exam Const General: cooperative, healthy appearing, comfortable, well developed and anxious (tearful, fearful) Nutritional Appearance: well nourished and overweight Orientation: alert, awake and oriented x3 HENMT Head: normal to inspection Ears: hearing grossly normal bilaterally Mouth: moist mucous membranes Chest Chest: normal inspection of the chest, normal palpation of entire chest wall, no crepitus and tenderness (diffuse mild tenderness) Resp Effort & Inspection: normal respiratory effort, able to speak in complete sentences and no respiratory distress Auscultation: clear to auscultation bilaterally, no rales, no rhonchi and no wheezes Cardio Rate: regular rate Rhythm: regular rhythm Heart Sounds: S1 normal and S2 normal GI Inspection: normal to inspection, no edema and non-distended Palpation: soft, no hepatosplenomegaly, not firm, no guarding, not rigid and nontender Auscultation: normal bowel sounds Back/Spine/Pelvis Back: no CVA tenderness Thoracic/Lumbar Spine: thoracic and lumbar spine normal to inspection Skin General skin exam: no rashes or lesions noted Trauma: no lacerations or abrasions Neuro General: patient alert, patient awake and patient oriented x3 Cognition: normal cognition Speech: speech normal Gait: normal gait Extrem General: normal to inspection, capillary refill normal, no pedal edema, no calf tenderness and normal gait Psych Appearance: grossly normal and well kempt Mental Status: mental status grossly normal Speech and Movement: speech and movement normal Mood: anxious mood Affect: sad and anxious affect Attitude: cooperative Thought Process: normal Thought Content: normal and suicidality Insight: fair Judgment: fair Course Vital Signs Vital signs: Vital Signs Temperature 36.7 C 02/08/23 16:59 Pulse 90 02/08/23 16:59 Respiratory Rate 20 02/08/23 16:59 Blood Pressure 169/100 H 02/08/23 16:59 Pulse Oximetry 98 02/08/23 16:59 Temperature 36.7 C 02/08/23 16:59 Temperature Source Tympanic 02/08/23 16:59 Pulse 90 02/08/23 16:59 Respiratory Rate 20 02/08/23 16:59 Respiratory Effort Short of Breath 02/08/23 17:06 Blood Pressure 169/100 H 02/08/23 16:59 Blood Pressure Position Sitting 02/08/23 16:59 Pulse Oximetry 98 02/08/23 16:59 Oxygen Delivery Method Room Air 02/08/23 16:59 Oxygen Flow Rate 0 02/08/23 16:59 Pain Level 9 02/08/23 16:59
--- NOTE | 2023-02-08 17:30 | DI.RAD_ITS ---
Exam(s) XR CHEST 2V PA LATERAL EXAM: XR CHEST 2V PA LATERAL CLINICAL HISTORY: CP. TECHNIQUE: 2D digital imaging was performed. COMPARISON: CR XR CHEST 2V PA LATERAL from 09/03/2022 FINDINGS: 2 views: Heart size is normal. The mediastinum is not widened. Lungs are clear. No infiltrates nor pleural effusions. IMPRESSION: No acute pulmonary findings. DATA REPOSITORY: RADIATION DOSE DELIVERED:
--- NOTE | 2023-02-08 17:30 | DI.RAD_ITS ---
Exam(s) XR KNEE LT 4V AP,LAT,YI,PAT EXAM: XR KNEE LT 4V AP,LAT,YI,PAT CLINICAL HISTORY: medial pain. TECHNIQUE: 2D digital imaging was performed. COMPARISON: No exams were available for comparison FINDINGS: Four views: There is no evidence of acute fracture nor prominent joint effusion. Bone density normal. Mild dege nerative changes in the medial compartment noted. No prominent joint space narrowing. No osseous le sions. No erosions. IMPRESSION: No fracture. Mild degenerative changes evident. DATA REPOSITORY: RADIATION DOSE DELIVERED:
[2023-02-08] MEDS: LORazepam 2 MG/ML VIAL 0.5 MG IVP (17:42)
[2023-02-08] MEDS: Aspirin 81 MG CHEW 324 MG CH (17:42)
[2023-02-08 17:54] LABS: Abs Immature Grans 0.05 10^3/uL (0.0-0.06); Absolute Basophil Count 0.07 10^3/uL (0.0-0.2); Absolute Eosinophil Count 0.22 10^3/uL (0.0-0.7); Absolute Lymphocyte Count 3.39 10^3/uL (1.2-3.4); Absolute Monocyte Count 0.49 10^3/uL (0.1-0.8); Basophils % 0.8; Eosinophils % 2.6; HCT 45.7 % (36.0-46.0); HGB 15.4 g/dL (11.2-15.7); Immature Grans % 0.6; Lymphocytes % 40.3; MCH 30.8 pg (27.0-33.0); MCHC 33.7 % (32.0-36.0); MCV 91 fL (80-95); MPV 11.6 fL (8.0-11.0); Monocytes % 5.8; Neutrophils % 49.9; Platelet Count 235 10^3/uL (130-400); RDW 12.6 % (11.7-14.6); RDW-SD 42.2 fL; WBC 8.42 10^3/uL (4.4-10.8)
[2023-02-08 18:00] VITALS: RESP 16
[2023-02-08 18:12] LABS: ALT 45 U/L (14-59); AST 23 U/L (15-37); Albumin 3.8 g/dL (3.4-5.0); Alkaline Phosphatase 111 U/L (46-116); Anion Gap 8.8 mmol/L (3-11); BUN 9 mg/dL (7-18); Bilirubin, Total 0.2 mg/dL (0.2-1.0); CO2 26.2 mmol/L (21.0-32.0); CREATININE 0.8 mg/dL (0.55-1.02); Calcium 8.5 mg/dL (8.5-10.1); Chloride 107 mmol/L (98-107); Estimated GFR 86.42 (mL/min/1.73m2); Glucose 92 mg/dL (74-106); Magnesium 2.3 mg/dL (1.8-2.4); Potassium 3.6 mmol/L (3.5-5.1); Sodium 142 mmol/L (136-145); Total Protein 7.5 g/dL (6.4-8.2); Troponin I < 50 ng/L (<or=60)
--- NOTE | 2023-02-08 19:03 | DI.VRAD_ITS ---
PROCEDURE INFORMATION: Exam: XR Left Knee Exam date and time: 02/08/2023 6:17 PM Age: 57 years old Clinical indication: Left knee pain TECHNIQUE: Imaging protocol: Radiologic exam of the left knee. Views: 4 or more views. COMPARISON: No relevant prior studies available. FINDINGS: Bones/joints: No acute fracture. No dislocation. No focal osseous lesion. No significant degenerative change. No joint effusion by plain film. Soft tissues: No soft tissue radiopaque foreign body. IMPRESSION: No acute findings. Dictated and Authenticated by: Luis Grace MD. Ordering:ALTAGRACIA Suero MD
--- NOTE | 2023-02-08 19:05 | DI.VRAD_ITS ---
PROCEDURE INFORMATION: Exam: XR Chest Exam date and time: 02/08/2023 6:11 PM Age: 57 years old Clinical indication: Chest wall pain TECHNIQUE: Imaging protocol: Radiologic exam of the chest. Views: 2 views. COMPARISON: CR XR CHEST 2V PA LATERAL 09/03/2022 9:17 AM FINDINGS: Lungs: No alveolar infiltrate. Pleural spaces: No pleural fluid collection. No pneumothorax. Heart/Mediastinum: Normal heart size. Bones/joints: Mild spinal degenerative changes. IMPRESSION: No active pulmonary disease. No acute change compared to 09/03/2022. Dictated and Authenticated by: Luis Grace MD. Ordering:ALTAGRACIA Suero MD
[2023-02-08 19:45] VITALS: BP 170/92; PULSE 80; RESP 18; O2SAT 94
[2023-02-08 21:38] LABS: Troponin I < 50 ng/L (<or=60)
[2023-02-08 21:57] VITALS: PULSE 85; RESP 20; O2SAT 92
--- NOTE | 2023-02-09 14:44 | PDOC.MHCN ---
Date of service: 02/08/23 Time of Service: 14:44 PHQ-9 Over the last 2 weeks, how often have you been bothered by any of the following problems? 1. Little interest or pleasure in doing things: more than half the days 2. Feeling down, depressed, or hopeless: more than half the days 3. Trouble falling or staying asleep, or sleeping too much: several days 4. Feeling tired or having little energy: nearly every day 5. Poor appetite or overeating: nearly every day 6. Feeling bad about yourself - or that you are a failure or have let yourself and your family down: nearly every day 7. Trouble concentrating on things, such as reading the newspaper or watching television: several days 8. Moving or speaking so slowly that other people could have noticed? - Or the opposite - being so fidgety or restless that you have been moving around a lot more than usual: nearly every day 9. Thoughts that you would be better off or of hurting yourself in some way: not at all Total score: 18 If you checked off any problems, how difficult have these problems made it for you to do your work, take care of things at home, or get along with other people?: somewhat difficult Source: Developed by Drs. Thomas Adams, Karissa Salinas, Master Thornton and colleagues, with an educational ori from [employer]. Suicide Severity Rate CSSRS Have you wished you were or wished you could go to sleep and not wake up?: No Have you actually had any thoughts of killing yourself?: No CSSRS4 Was this within the past three months?: No Screening Score Total Score: 0 Screening: Negative Mental Health Emergency Note Release [facility] release signed:: Yes Reason for Visit Client presented to [facility] with concerns about her blood pressure, left knee pain and anxiety. [facility] requested a screening and support for the client. In the last 2 weeks has the pt presented for ES prior to today?: Unknown Client Information Client is: New Well Housed: No,status: Homeless Non Suicidal Self Injury Current: No History: No Safety Risk/Harm to Self or Others Current Ideation to Harm Self or Others: No Risk: Does risk to harm exist?: No Risk: Low Risk Duty to warn indicated: No Asssessment/Mental Status Appearance: Well groomed Attitude: Cooperative and Friendly Behavior: Unremarkable Speech: Normal Affect: Cogruent with mood Mood: Sad, Stressed and Depressed Thought process: Unremarkable Hallucinations: No Delusions: No Attention: Unremarkable Perception: Not impaired Orientation: Fully orientated Memory: Intact Insight: Good Judgement: Good Neurovegetative Symptoms Sleep: Increase Appetitie: Increase Interests: Decrease (want to do things but mobility prevents ) Energy: Decrease (some days good some days bad depending on sleep.) Libido: Not applicable Substance Use: Do you use nicotine?: No Have you used substances in the last 7 days?: No Additional Issues: Assaultive/Threatening Behavior: No Medical Concerns: No Client engaged in active self harm w/weapon: No Threatening to run away: No Child reported abuse/neglect: No Voluntarily presenting for services: Yes Domestic violence is a concern: No Extreme Psychosis or extreme behavior is present: No Impression Client is a 57 year old, female who is homeless living at the [facility] in [facility]. She has two adult daughters and 4 grandkids who she loves dearly and are very supportive of her. She presented for physical complaints this evening to [facility] however, it was realized she was also struggling with some anxiety. 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 The clients protective factors include employment, family support and enjoyment/interest in things she typically likes to do even though her living arrangement prevents her from doing so at this time. Client's symptoms are consistent with a generalized anxiety disorder. [facility] and given:: [phone] and [facility] Plan/Disposition Recommended Disposition: PCP/Office visit and [facility] Services [facility] Services: Therapy. Plan: Client agreed to daily check in calls through the weekend and was offered 988 and [facility] as needed for support and guidance. Person reported agreement to plan: Yes Reports/communication Outcome discussed with: ED/Personnel
== END 2023-02-08 21:57 | disposition home or self-care (01) ==
PROVIDERS: Emergency Provider Physician Assistant; PCP Nurse Practitioner Family
DX: R07.89 Other chest pain (principal); S83.412A Sprain of medial collateral ligament of left knee, initial encounter; F41.9 Anxiety disorder, unspecified; F43.9 Reaction to severe stress, unspecified; I10 Essential (primary) hypertension; R20.2 Paresthesia of skin; X58.XXXA Exposure to other specified factors, initial encounter
CPT/HCPCS: 80053; 93005; 96374; 99284; 71046; 73564; 83735; 84484; 85025; 93010; J2060

== ENCOUNTER 2023-03-29 01:06 | Outpatient (CLI) | payer MEDICAID, SELFPAY ==
--- NOTE | 2023-03-29 06:45 | DI.MRI_ITS ---
Exam(s) MR LOWER JOINT LT WO EXAM: MR LOWER JOINT LT WO CLINICAL HISTORY: suspected MCL sprain, ? tear, meniscus?.s83.857a. TECHNIQUE: Multiplanar multisequence MRI was performed. COMPARISON: CR,XR XR KNEE LT 4V AP,LAT,YI,PAT from 02/08/2023 FINDINGS: BONES: There is no fracture or contusion pattern. JOINTS: There is thinning of the articular cartilage overlying the medial patellar facet. Degenerati ve changes are seen in the medial femoral tibial joint with periarticular spurring and thinning of th e articular cartilage with joint space narrowing. There is a small joint effusion. TENDONS: Extensor mechanism: Unremarkable. Medial retinaculum: Unremarkable. Lateral retinaculum: Unremarkable. Popliteus: Unremarkable. MUSCLES: Unremarkable. MENISCI: There is a tear of the body of the medial meniscus. The lateral meniscus is unremarkable. SOFT TISSUES: There is a popliteal cyst present. LIGAMENTS: Anterior Cruciate: Unremarkable. Posterior Cruciate: Unremarkable. Medial Collateral:There is fluid seen around the MCL consistent with a sprain. There is hyperintense signal seen between the meniscus and the medial collateral ligament suspicious for meniscocapsular s eparation. Lateral Collateral: Unremarkable. OTHER: IMPRESSION: 1. Tear of the body of the medial meniscus. 2. MCL sprain and question of meniscocapsular separation medially. 3. Degenerative changes of the knee particularly in the medial femoral tibial joint space. 4. Small joint effusion. 5. Popliteal cyst. DATA REPOSITORY:
== END 2023-03-29 01:26 ==
LOC: DI 01:06
PROVIDERS: PCP Nurse Practitioner Family; Visit Provider Nurse Practitioner Family
DX: S83.242A Other tear of medial meniscus, current injury, left knee, initial encounter (principal); M25.462 Effusion, left knee; M71.22 Synovial cyst of popliteal space [Baker], left knee
CPT/HCPCS: 73721

== ENCOUNTER 2023-05-07 00:41 | Outpatient (CLI) | payer MEDICAID, SELFPAY ==
--- NOTE | 2023-05-07 14:00 | DI.CTLCSR_ITS ---
Exam(s) CT CHEST LUNG CANCER SCREEN EXAM: CT CHEST LUNG CANCER SCREEN CLINICAL HISTORY: Screening for lung cancer,CURRENT SMOKER, F17.210 TECHNIQUE: Imaging Protocol: Axial computed tomography images with coronal and sagittal reformatted images were created and reviewed. Low dose screening protocol. COMPARISON: CR,XR XR CHEST 2V PA LATERAL from 02/08/2023 FINDINGS: Tracheobronchial tree: No bronchiectasis or mucus plugging.. Mediastinum and Radha: No dominant adenopathy or fluid collection. Pulmonary parenchyma: No consolidation or dominant measurable mass. Mild emphysematous changes. Min imal pulmonary scarring. Lung Nodules: None. Pleura: No effusion. No pneumothorax. Heart: The heart is not dilated. [id number] coronary artery calcifications are seen. Aorta: Thoracic aorta non-dilated. Minimal calcification. Upper abdomen: Unremarkable. Status post cholecystectomy. Bones: Degenerative changes in the mid thoracic spine. Soft Tissues: Unremarkable. IMPRESSION: No suspicious pulmonary nodules. Lung RADS Cat 1 - Negative: No nodules and definitely benign nodules Lung-RADS 1.0 CATEGORIES: Category 0 - Prior chest CT exam(s) being located for comparison. Category 1 - Annual screening in 12 months. No nodules or definitely benign nodules. Category 2 - Annual screening in 12 months. Benign appearance. Nodules with low likelihood of becomin g active cancer. Category 3 - 6-month follow-up. Probably benign. Short-term follow-up suggested. Nodules with low lik elihood of becoming active cancer. Category 4A - 3-month follow-up and CT/PET if >8 mm in size. Suspicious finding. Findings which requi re additional testing. Category 4B - Findings which require additional testing and tissue sampling. Category 4X - Category 3 or 4 nodules with additional features or imaging findings that increases the suspicion of malignancy. Modifier S- Potentially clinically significant findings (non lung cancer) RADIATION DOSE DELIVERED: 95.47mGy.cm Total DLP DATA REPOSITORY: All CT scans at this facility are submitted to the National Radiology Data Registry (NRDR) Dose Index Registry (DIR) with the [employer] (A[employer]). RADIATION OPTIMIZATION: All CT scans at this facility use at least one of these dose optimization te chniques: automated exposure control; mA and/or kV adjustment per patient size (includes targeted exa ms where dose is matched to clinical indication); or iterative reconstruction.
--- NOTE | 2023-05-07 14:05 | DI.MAMMO_ITS ---
Exam(s) MAMMO SCREENING EXAM: MAMMO SCREENING CLINICAL HISTORY: screening,Z12.39 TECHNIQUE: Mammograms were interpreted according to the usual protocol including computer analysis w The [email or web address] CAD system, tomosynthesis and C-view imaging. COMPARISON: None. Prior mammograms were unable to be located. FINDINGS: The breasts are composed of mainly fatty density , Breast Density category A. No suspicious masses or suspicious microcalcifications are seen. No skin thickening or abnormal axillary lymph nodes are seen. . IMPRESSION: BI-RADS Category 1, Negative mammogram Yearly screening mammography is recommended. Breast Density - Category A, fatty density. A negative radiographic report should not delay biopsy if a dominant or clinically suspicious mass is present. Up to ten percent of cancers are not identified on mammography. A negative report may reinforce clinical impression. Adenosis and dense breasts may obscure an underlying neoplasm. False positive reports average 6 to 10%. Patient will receive a letter notifying them of these results.
== END 2023-05-07 01:01 ==
LOC: DI 00:41
PROVIDERS: PCP Nurse Practitioner Family; Visit Provider Nurse Practitioner Family
DX: Z12.31 Encounter for screening mammogram for malignant neoplasm of breast (principal); Z12.2 Encounter for screening for malignant neoplasm of respiratory organs; R92.8 Other abnormal and inconclusive findings on diagnostic imaging of breast
CPT/HCPCS: 71271; 77063; 77067

== ENCOUNTER 2023-05-21 03:32 | Outpatient (CLI) | payer MEDICAID, SELFPAY ==
[2023-05-21 12:49] LABS: ALT 38 U/L (14-59); AST 21 U/L (15-37); Albumin 3.9 g/dL (3.4-5.0); Alkaline Phosphatase 108 U/L (46-116); Anion Gap 10.9 mmol/L (3-11); BUN 8 mg/dL (7-18); Bilirubin, Total 0.8 mg/dL (0.2-1.0); CO2 25.1 mmol/L (21.0-32.0); CREATININE 0.9 mg/dL (0.55-1.02); Calculated LDL 142 mg/dL (<100); Chloride 107 mmol/L (98-107); Cholesterol 213 mg/dL (<200); Estimated GFR 75.03 (mL/min/1.73m2); Glucose 106 mg/dL (74-106); HDL Cholesterol 47 mg/dL (40-60); Potassium 3.8 mmol/L (3.5-5.1); Sodium 143 mmol/L (136-145); TSH (W/Ref FT4) 0.61 uIU/mL (0.36-3.74); Total Protein 7.6 g/dL (6.4-8.2); Triglyceride 124 mg/dL (<150)
[2023-05-21 12:59] LABS: Hemoglobin A1C 5.5 % (<5.7)
== END 2023-05-21 03:33 | disposition home or self-care (01) ==
LOC: LOS 03:32
PROVIDERS: PCP Nurse Practitioner Family; Visit Provider Nurse Practitioner Family
DX: I10 Essential (primary) hypertension (principal)
CPT/HCPCS: 36415; 80053; 80061; 83036; 84443

== ENCOUNTER 2023-06-12 13:51 | Outpatient (REF) | payer MEDICAID, SELFPAY ==
--- NOTE | 2023-06-12 13:30 | PAPFT_PTH ---
PATIENT: Tri Gary LOC: [facility] U#:[id number] AGE/SX: 57/F ROOM: RE06/12/[address]: ZAN Peterson : 1965 BED: DIS: 06/12/2023 SPEC #: [id number] RECD: 06/13/23 14:48 STATUS: ISIDRO REKwan #: [id number] FEDERICO: 06/12/23 13:[address]: Violeta Goodwin DEPT: [facility] Cytology RECD BY: Cheryl Aguilera Tissues: 1 - CX/ENDOCX FOR PAP SMEARS Procedures: PAP THIN PREP/UVM Screening HPV DNA PROBE Comments: [id number] (CHLAMYDIA/GC)
[2023-06-14 13:09] LABS: Chlamydia Result Negative (Negative); GC Result Negative (Negative)
== END 2023-06-12 13:52 | disposition home or self-care (01) ==
LOC: LBN 13:51
PROVIDERS: PCP Nurse Practitioner Family; Visit Provider Nurse Practitioner Family
DX: Z12.4 Encounter for screening for malignant neoplasm of cervix (principal); Z11.51 Encounter for screening for human papillomavirus (HPV)
CPT/HCPCS: 87491; 87591; 88142; 87624

== ENCOUNTER 2024-07-09 20:48 | Outpatient (REF) | payer MEDICAID, SELFPAY ==
[2024-07-09 13:39] LABS: Bilirubin Negative (Negative); Blood Negative (Negative); Clarity Clear (Clear); Glucose Negative (Negative); Ketones Negative (Negative); Leukocyte Esterase Large (Negative); Nitrite Negative (Negative); Urobilinogen 0.2 mg/dL (Up to 0.2)
[2024-07-09 14:18] LABS: Bacteria Few HPF (Negative); Epithelial Cells Moderate HPF (Negative)
[2024-07-09 14:19] LABS: C & S Indicated? C&S Done As Ordered; Casts Negative LPF (Negative); Crystals Negative HPF (Negative); Mucus Negative (Negative)
== END 2024-07-09 20:49 | disposition home or self-care (01) ==
LOC: LBN 20:48
PROVIDERS: PCP Nurse Practitioner Family; Visit Provider Nurse Practitioner Family
DX: R35.0 Frequency of micturition (principal)
CPT/HCPCS: 81003; 81015; 87086

== ENCOUNTER 2024-07-28 03:07 | Outpatient (CLI) | payer MEDICAID, SELFPAY ==
[2024-07-28 12:18] LABS: HCT 44.4 % (36.0-46.0); HGB 14.4 g/dL (11.2-15.7); MCH 30.9 pg (27.0-33.0); MCHC 32.4 % (32.0-36.0); MCV 95 fL (80-95); MPV 11.6 fL (8.0-11.0); Platelet Count 235 10^3/uL (130-400); RBC 4.66 10^6/uL (3.93-5.22); RDW 12.4 % (11.7-14.6); RDW-SD 43.5 fL; WBC 6.45 10^3/uL (4.4-10.8)
[2024-07-28 12:29] LABS: Hemoglobin A1C 5.8 % (<5.7)
[2024-07-28 12:56] LABS: Anion Gap 9.2 mmol/L (3-11); BUN 19 mg/dL (7-18); CO2 23.8 mmol/L (21.0-32.0); CREATININE 0.8 mg/dL (0.55-1.02); Calcium 8.9 mg/dL (8.5-10.1); Chloride 106 mmol/L (98-107); Estimated GFR 85.89 (mL/min/1.73m2); Glucose 121 mg/dL (74-106); Magnesium 2.2 mg/dL (1.8-2.4); Potassium 4.4 mmol/L (3.5-5.1); Sodium 139 mmol/L (136-145); Vitamin B12 360 pg/mL (193-986)
== END 2024-07-28 03:08 | disposition home or self-care (01) ==
LOC: LOS 03:08
PROVIDERS: PCP Nurse Practitioner Family; Visit Provider Nurse Practitioner Family
DX: M79.672 Pain in left foot (principal); M79.671 Pain in right foot
CPT/HCPCS: 36415; 80048; 85027; 82607; 83036; 83735

== ENCOUNTER 2024-08-19 14:36 | Outpatient (CLI) | payer MEDICAID, SELFPAY ==
--- NOTE | 2024-08-19 14:30 | DI.RAD_ITS ---
Exam(s) XR KNEE LT 2V AP,LAT EXAM: XR KNEE LT 2V AP,LAT CLINICAL HISTORY: LEFT KNEE PAIN. TECHNIQUE: 2D digital imaging was performed. Two views. COMPARISON: CR,XR XR KNEE LT 4V AP,LAT,YI,PAT from 02/08/2023 FINDINGS: BONES: No acute fracture is present. No bony destructive lesion is seen. JOINTS: The knee is normally aligned. No joint effusion is seen. The femoral tibial joint spaces are maintained. Small to moderate small periarticular spurs noted at the medial femoral condyle and medi al tibial plateau. SOFT TISSUE: Normal. IMPRESSION: Mild to moderate degenerative changes, greatest in the medial femoral tibial joint. DATA REPOSITORY: RADIATION DOSE DELIVERED:
== END 2024-08-19 14:37 | disposition home or self-care (01) ==
LOC: DIORS 14:36
PROVIDERS: PCP Nurse Practitioner Family; Visit Provider Student in an Organized Health Care Education/Training Program
DX: M17.12 Unilateral primary osteoarthritis, left knee (principal)
CPT/HCPCS: 73560

== ENCOUNTER 2024-09-14 01:23 | Outpatient (CLI) | payer MEDICAID, SELFPAY ==
--- NOTE | 2024-09-14 14:07 | DI.RAD_ITS ---
Exam(s) XR LUMBAR SPINE COMPLETE EXAM: XR LUMBAR SPINE COMPLETE CLINICAL HISTORY: lumbar radiculopathy, M54.16. TECHNIQUE: 2D digital imaging was performed. Five views. COMPARISON: No exams were available for comparison FINDINGS: BONES: No fracture or destructive lesion. Vertebral body heights are maintained. There are facet d egenerative changes throughout which are more prominent at L 3 4 through L5-S1. There are mild degen erative changes of the SI joints. DISKS: Intervertebral disc spaces are maintained. There are minimal endplate osteophytes ALIGNMENT: Lumbar spinal alignment is within normal limits. SOFT TISSUE: Right upper quadrant surgical clips. Mild calcification in the abdominal aorta. IMPRESSION: Degenerative changes of the facet joints, greater in the lower lumbar region. DATA REPOSITORY: RADIATION DOSE DELIVERED:
== END 2024-09-14 01:43 ==
LOC: DI 01:23
PROVIDERS: PCP Nurse Practitioner Family; Visit Provider Nurse Practitioner Family
DX: M54.16 Radiculopathy, lumbar region (principal)
CPT/HCPCS: 72110

== ENCOUNTER 2024-09-23 14:38 | Outpatient (REF) | payer MEDICAID, SELFPAY ==
[2024-09-23 15:06] LABS: Bilirubin Negative (Negative); Blood Negative (Negative); Clarity Cloudy (Clear); Glucose Negative (Negative); Ketones Negative (Negative); Leukocyte Esterase Moderate (Negative); Nitrite Negative (Negative); Specific Gravity 1.025 (1.005-1.025); Urobilinogen 0.2 mg/dL (Up to 0.2); pH 5.5 (5-8)
[2024-09-23 15:07] LABS: Bacteria Negative HPF (Negative); C & S Indicated? C&S Done As Ordered; Casts Negative LPF (Negative); Crystals Many Amorphous HPF (Negative); Epithelial Cells Negative HPF (Negative); Mucus Negative (Negative); RBC Negative HPF (0-2)
== END 2024-09-23 14:39 | disposition home or self-care (01) ==
LOC: LBN 14:38
PROVIDERS: PCP Nurse Practitioner Family; Visit Provider Nurse Practitioner Family
DX: R35.0 Frequency of micturition (principal); R10.9 Unspecified abdominal pain; R82.998 Other abnormal findings in urine
CPT/HCPCS: 81003; 81015; 87086

== ENCOUNTER 2024-09-30 13:41 | Emergency (ER) | payer MEDICAID, SELFPAY ==
[2024-09-30 13:47] VITALS: BP 109/72; PULSE 107; RESP 20; TEMP 36.6; O2SAT 96
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
[2024-09-30] MEDS: Ketorolac 15 MG/ML VIAL IM (14:17)
[2024-09-30] MEDS: Lidocaine 5% Patch 1 PATCH TP (14:17)
[2024-09-30 14:56] VITALS: BP 109/72; PULSE 107; RESP 20; TEMP 36.6; O2SAT 96
== END 2024-09-30 14:57 | disposition home or self-care (01) ==
PROVIDERS: Emergency Provider Emergency Medicine; PCP Nurse Practitioner Family
DX: M25.562 Pain in left knee (principal); M23.204 Derangement of unspecified medial meniscus due to old tear or injury, left knee; M54.50 Low back pain, unspecified; F17.200 Nicotine dependence, unspecified, uncomplicated; Z59.811 Housing instability, housed, with risk of homelessness; Z59.82 Transportation insecurity; Z59.87 Material hardship due to limited financial resources, not elsewhere classified; Z63.9 Problem related to primary support group, unspecified
CPT/HCPCS: 96372; 99284; J1885

== ENCOUNTER 2024-10-09 00:21 | Outpatient (CLI) | payer MEDICAID, SELFPAY ==
--- NOTE | 2024-10-09 09:00 | DI.MRI_ITS ---
Exam(s) MR LUMBAR SPINE WO EXAM: MR LUMBAR SPINE WO CLINICAL HISTORY: lumbar radiculopathy, known DJD m54.16 radiculopathy lumbar region. TECHNIQUE: Multiplanar multisequence MRI of the Lumbar spine was performed. COMPARISON: CR XR LUMBAR SPINE COMPLETE from 09/14/2024 FINDINGS: Bones: The last intervertebral disc space is designated the L5/S1 level for the numbering purpose of this examination. The vertebral body heights are well maintained. Alignment is satisfactory. There is a hemangioma in the S1 vertebral body. Cord: The conus tip ends at the L1 level. It is of normal size and signal intensity. T12-L1: No disc herniations or bulges are present. No central spinal canal or neural foraminal stenos is. L1-2: No disc herniations or bulges are present. No central spinal canal or neural foraminal stenosis . L2-3: There is a diffuse disc bulge. Degenerative changes of the facets are seen, right greater than left. No significant central spinal canal or left neural foraminal stenosis is seen. The disc prot rudes into the right neural foramen causing [id number] right neural foraminal stenosis. No dalton tral spinal canal or neural foraminal stenosis. L3-4: There is a diffuse disc bulge. There are degenerative changes of the facets and hypertrophy of the ligamentum flavum. These all contribute to cause mild to moderate central spinal canal stenosis . There is moderate bilateral neural foraminal stenosis. L4-5: There is a diffuse disc bulge. There are hypertrophic changes of the facets and ligamentum fla vum. No significant central spinal canal stenosis or neural foraminal stenosis is present. L5-S1: No disc herniations or bulges are present. No central spinal canal or neural foraminal stenosi s.There are mild degenerative changes of the facets joints. Soft tissues: The visualized SI joints and sacrum are well maintained. The paraspinal soft tissues ar e unremarkable. Visualized abdominal organs: There is an exophytic mass arising from the lateral aspect of the right kidney. It is incompletely imaged. It measures at least 3.6 cm AP and 3.3 cm craniocaudad. There i s also what appears to be a cyst at the lateral aspect of the left kidney measuring 2 cm. IMPRESSION: 1. Multilevel degenerative changes in the lumbar spine resulting in yiti-et-wbecbuve right L2-3 neura l foraminal stenosis and bilateral moderate L3-4 neural foraminal stenosis. 2. Bilateral renal masses. Further evaluation with contrast-enhanced CT or MRI examination is recomm ended. Unexpected findings DATA REPOSITORY:
--- NOTE | 2024-10-09 09:00 | DI.MAMMO_ITS ---
Exam(s) MAMMO SCREENING EXAM: MAMMO SCREENING CLINICAL HISTORY: [id number] SCREENING MAMMO TECHNIQUE: Bilateral full field digital CC and MLO mammographic images were obtained with 3D tomosyn thesis and utilizing computer aided detection (CAD). COMPARISON: Available for comparison. FINDINGS: Masses/Architectural Distortion: None seen. Microcalcifications: No suspicious pleomorphic-type are seen. Skin Thickening/Nipple Retraction: None. IMPRESSION: 1. No significant interval change with no specific features of malignancy noted. 2. Unless there is more urgent need, screening mammography is recommended, as per [employer] guidelines. BI-RADS Category 1 - Negative Breast Density - Category B - Scattered areas of fibroglandular density Breast density category C or D implies that the patient has dense breast tissue. Dense breast tissue is very common and is not abnormal but dense breast tissue can make it harder to find cancer on a ma mmogram. Also, dense breast tissue may increase their breast cancer risk. This information about the result of the mammogram report was provided to the patient to raise their awareness. Use this report when you speak with the patient about their risks for breast cancer, which includes their family hist ory. At that time, you may recommend for more screening tests (Ultrasound or MRI) as they might be us eful based on their risk. A negative radiographic report should not delay biopsy if a dominant or clinically suspicious mass is present. Up to ten percent of cancers are not identified on mammography. A negative report may reinforce clinical impression. Adenosis and dense breasts may obscure an underlying neoplasm. False positive reports average 6 to 10%. Patient will receive a letter notifying them of these results.
--- NOTE | 2024-10-09 09:00 | DI.CTLCSR_ITS ---
Exam(s) CT CHEST LUNG CANCER SCREEN EXAM: CT CHEST LUNG CANCER SCREEN CLINICAL HISTORY: Screening for lung cancer F17.210 SMOKER TECHNIQUE: Imaging Protocol: Axial computed tomography images with coronal and sagittal reformatted images were created and reviewed. Lung Computer Aided Detection (CAD) was utilized. COMPARISON: CT CT CHEST LUNG CANCER SCREEN from 05/07/2023 FINDINGS: Tracheobronchial tree: Patent where visualized. No bronchiectasis. Pulmonary parenchyma: No consolidation or dominant measurable mass. No architectural distortion. Lung Nodules: None. Mediastinum and Radha: No dominant adenopathy or fluid collection. The esophagus is unremarkable. Thyroid gland: Unremarkable. Lymph nodes: Unremarkable. Pleura: No effusion or pneumothorax. Heart: The heart is not dilated. Three vessel coronary artery calcification is present. No pericardi al effusion. Aorta: Thoracic aorta non-dilated.Atherosclerotic calcification is present Upper abdomen: Unremarkable. Soft Tissues: Unremarkable. Bones: Within normal limits. IMPRESSION: No suspicious pulmonary nodules. Lung RADS Cat 1 - Negative: No nodules and definitely benign nodules Lung-RADS 1.0 CATEGORIES: Category 0 - Prior chest CT exam(s) being located for comparison. Category 1 - Annual screening in 12 months. No nodules or definitely benign nodules. Category 2 - Annual screening in 12 months. Benign appearance. Nodules with low likelihood of becomin g active cancer. Category 3 - 6-month follow-up. Probably benign. Short-term follow-up suggested. Nodules with low lik elihood of becoming active cancer. Category 4A - 3-month follow-up and CT/PET if >8 mm in size. Suspicious finding. Findings which requi re additional testing. Category 4B - Findings which require additional testing and tissue sampling. Suspicious finding. Category 4X - Category 3 or 4 nodules with additional features or imaging findings that increases the suspicion of malignancy. Modifier S- Potentially clinically significant finding. (Non lung cancer) RADIATION DOSE DELIVERED: 50.24mGy.cm Total DLP 50.24mGy.cmTotal DLP DATA REPOSITORY: All CT scans at this facility are submitted to the National Radiology Data Registry (NRDR) Dose Index Registry (DIR) with the [employer] ([employer]). RADIATION OPTIMIZATION: All CT scans at this facility use at least one of these dose optimization te chniques: automated exposure control; mA and/or kV adjustment per patient size (includes targeted exa ms where dose is matched to clinical indication); or iterative reconstruction.
== END 2024-10-09 00:41 ==
LOC: DI 00:21
PROVIDERS: PCP Nurse Practitioner Family; Visit Provider Nurse Practitioner Family
DX: Z12.31 Encounter for screening mammogram for malignant neoplasm of breast (principal); M54.16 Radiculopathy, lumbar region
CPT/HCPCS: 71271; 77063; 77067; 72148

== ENCOUNTER 2025-01-04 22:09 | Outpatient (REF) | payer MEDICAID, SELFPAY ==
[2025-01-04 21:54] LABS: Bilirubin Negative (Negative); Blood Trace-intact (Negative); Clarity Turbid (Clear); Glucose Negative (Negative); Ketones Negative (Negative); Leukocyte Esterase Moderate (Negative); Nitrite Negative (Negative); Specific Gravity >= 1.030 (1.005-1.025); Urobilinogen 0.2 mg/dL (Up to 0.2); pH 5.5 (5-8)
[2025-01-04 22:02] LABS: Bacteria Few HPF (Negative); C & S Indicated? No; Casts Negative LPF (Negative); Crystals Moderate Amorphous HPF (Negative); Epithelial Cells Few HPF (Negative); Mucus Negative (Negative); RBC 0-2 HPF (0-2)
== END 2025-01-04 22:10 | disposition home or self-care (01) ==
LOC: LBN 22:09
PROVIDERS: PCP Nurse Practitioner Family; Visit Provider Nurse Practitioner Family
DX: R10.30 Lower abdominal pain, unspecified (principal); N28.89 Other specified disorders of kidney and ureter
CPT/HCPCS: 81003; 81015

== ENCOUNTER 2025-05-15 13:31 | Outpatient (CLI) | payer MEDICAID, SELFPAY ==
--- NOTE | 2025-05-15 13:30 | RT.EKG_ITS ---
APPROVED REPORT Exam: Resting ECG Reason for Exam: pre-op exam Patient Location: O HR:87 bpm ECG Measurements Heart Rate 87 AXIS RI 158 P 60 QRSd 83 QRS 29 QT 362 T 51 QTc 436 Conclusion Sinus rhythm...normal P axis, V-rate 50- 99 Normal Electrocardiogram
== END 2025-05-15 13:32 | disposition home or self-care (01) ==
LOC: DI.CM 13:45
PROVIDERS: PCP Nurse Practitioner Family; Visit Provider Nurse Practitioner Family
DX: Z01.818 Encounter for other preprocedural examination (principal)
CPT/HCPCS: 93010

== ENCOUNTER 2025-05-15 14:15 | Outpatient (REF) | payer MEDICAID, SELFPAY ==
[2025-05-15 15:24] LABS: HCT 41.8 % (36.0-46.0); HGB 14.3 g/dL (11.2-15.7); MCH 31.4 pg (27.0-33.0); MCHC 34.2 % (32.0-36.0); MCV 92 fL (80-95); MPV 11.8 fL (8.0-11.0); Platelet Count 248 10^3/uL (130-400); RBC 4.55 10^6/uL (3.93-5.22); RDW 11.9 % (11.7-14.6); RDW-SD 40.1 fL; WBC 7.60 10^3/uL (4.4-10.8)
[2025-05-15 15:34] LABS: ALT 30 U/L (14-59); AST 20 U/L (15-37); Albumin 4.2 g/dL (3.4-5.0); Alkaline Phosphatase 112 U/L (46-116); Anion Gap 8.6 mmol/L (3-11); BUN 20 mg/dL (7-18); Bilirubin, Total 0.4 mg/dL (0.2-1.0); CO2 28.4 mmol/L (21.0-32.0); Calcium 9.7 mg/dL (8.5-10.1); Chloride 105 mmol/L (98-107); Estimated GFR 74.10 (mL/min/1.73m2); Glucose 83 mg/dL (74-106); Potassium 4.4 mmol/L (3.5-5.1); Sodium 142 mmol/L (136-145); Total Protein 7.3 g/dL (6.4-8.2)
== END 2025-05-15 14:16 | disposition home or self-care (01) ==
LOC: LBN 14:15
PROVIDERS: PCP Nurse Practitioner Family; Visit Provider Nurse Practitioner Family
DX: C64.2 Malignant neoplasm of left kidney, except renal pelvis (principal); R82.89 Other abnormal findings on cytological and histological examination of urine
CPT/HCPCS: 80053; 85027; 87086

== ENCOUNTER 2025-08-27 04:16 | Outpatient (CLI) | payer MEDICAID, SELFPAY ==
[2025-08-27 10:55] LABS: Hemoglobin A1C 5.5 % (<5.7)
[2025-08-27 11:01] LABS: Calculated LDL 158 mg/dL (<100); Cholesterol 265 mg/dL (<200); HDL Cholesterol 50 mg/dL (>or=50); Triglyceride 288 mg/dL (<150)
[2025-08-27 19:06] LABS: Hepatitis C Ab w Rflx HCV PCR Negative (Negative)
[2025-08-27 19:11] LABS: HIV-1/2 Ag & Ab Screen Negative (Negative)
[2025-08-27 19:13] LABS: HBs Antibody, Quant 18.2 mIU/mL (See Note); Hepatitis B Surface Antigen Negative (Negative)
== END 2025-08-27 04:17 | disposition home or self-care (01) ==
LOC: LBO 04:16
PROVIDERS: PCP Nurse Practitioner Family; Visit Provider Nurse Practitioner Family
DX: Z11.59 Encounter for screening for other viral diseases (principal); E78.5 Hyperlipidemia, unspecified; R73.03 Prediabetes; Z11.4 Encounter for screening for human immunodeficiency virus [HIV]
CPT/HCPCS: 36415; 80061; 86704; 86706; 86803; 87340; 87389; 83036

== ENCOUNTER 2025-09-08 15:48 | Outpatient (REF) | payer MEDICAID, SELFPAY ==
[2025-09-08 21:39] LABS: Glucose Negative (Negative)
[2025-09-08 22:02] LABS: RBC 0-2 HPF (0-2)
== END 2025-09-08 15:49 | disposition home or self-care (01) ==
LOC: LBN 15:48
PROVIDERS: PCP Nurse Practitioner Family; Visit Provider Nurse Practitioner Family
DX: C64.9 Malignant neoplasm of unspecified kidney, except renal pelvis (principal)
CPT/HCPCS: 81003; 81015